=== PATIENT | male | born 1955 | race Caucasian/White ===

== ENCOUNTER 2016-08-01 14:30 | Day surgery (SDC) | payer OTHER ==
[~2016-08-01] VITALS: Ht 167.6 cm; Wt 81.1 kg
[2016-08-01 14:46] VITALS: Ht 167.6 cm; Wt 81.1 kg
[2016-08-01] MEDS ORDERED: cholesterol med (14:55)
[2016-08-01] MEDS ORDERED: BENA10TA48 PO (14:55)
[2016-08-01] MEDS ORDERED: PROPOFOL 40 ML ONE (15:15)
[2016-08-01 15:16] VITALS: BP 144/79; PULSE 71; RESP 22
[2016-08-01 16:25] VITALS: BP 134/69; PULSE 64; RESP 15
--- NOTE | 2016-08-01 16:54 | GILP ---
DATE OF PROCEDURE: 08/01/2016 NAME OF PROCEDURES: 1. Colonoscopy and polypectomy. 2. Clipping of the polypectomy sites. INDICATION FOR THE PROCEDURE: Mr. Brad Nava is a 61-year-old male patient who was scheduled for screening colonoscopy. The patient had history of rectal bleeding. The procedure and possible complications are well explained to the patient. He understood and conse nted to the procedure. DESCRIPTION OF PROCEDURE: Under the influence of anesthesia, the colonoscope was carefully introduc ed in the rectum and under direct vision, it was advanced all the way to the cecum. FINDINGS: The patient had extensive diverticulosis of the sigmoid colon. He had 2 sigmoid colon po lyps, one at 50 cm from the anus and another one at 30 cm and both of them had a wide base. Both of the polyps are removed using the snare and electrocautery. Because of the wide base, clipping of t he polypectomy sites were done to prevent bleeding. The patient was noted to have internal hemorrho ids. He tolerated the procedure very well and there was no complication from the procedure. At the end o f the procedure, he was awake with stable vital signs and he was discharged home to the care of his family. IMPRESSION: 1. Colonoscopy all the way to the cecum. 2. Extensive diverticulosis of the sigmoid colon. 3. Two broad-based polyps from the sigmoid colon at 30 cm and 50 cm were removed using the snare an d electrocautery. 4. Clipping of the polypectomy sites were done because of the wide base to prevent bleeding. 5. Internal hemorrhoids. PLAN: Await histopathology report. Anusol-HC 2.5% cream at bedtime p.r.n. Await histopathology re ports. Timing for the next colonoscopy will be decided after revealing the biopsy reports. If ther e is no malignancy, the patient will need followup colonoscopy in 3 years. Dictated By: CHARIS MARTINI/DAVE Conf#: [id number] DID#: [id number]
== END 2016-08-01 16:35 | disposition home or self-care (01) ==
LOC: GIL 14:30
PROVIDERS: ATTEND Internal Medicine Gastroenterology
DX: D12.5 Benign neoplasm of sigmoid colon (principal); K64.8 Other hemorrhoids; K57.90 Diverticulosis of intestine, part unspecified, without perforation or abscess without bleeding; I10 Essential (primary) hypertension; F17.200 Nicotine dependence, unspecified, uncomplicated
CPT/HCPCS: 45380; 88305; Z7610